=== PATIENT | male | born 1975 | race Caucasian/White ===

== ENCOUNTER → 2019-09-30 | Outpatient (CLI) | payer OTHER | LOC: ULTRA 15:42 | PROVIDERS: ATTEND Nurse Practitioner | DX: M79.601 Pain in right arm (principal); Z86.718 Personal history of other venous thrombosis and embolism ==

== ENCOUNTER → 2020-09-22 | Outpatient (CLI) | payer OTHER | LOC: SJCVC 13:48 → SJCVCIMAG 13:48 → SJCVC 16:57 | PROVIDERS: ATTEND Family Medicine | DX: I08.0 Rheumatic disorders of both mitral and aortic valves (principal); I77.819 Aortic ectasia, unspecified site ==

== ENCOUNTER → 2020-09-23 | Outpatient (CLI) | payer OTHER | LOC: SJCVCIMAG 09-22 16:57 | PROVIDERS: ATTEND Internal Medicine Cardiovascular Disease | DX: I65.23 Occlusion and stenosis of bilateral carotid arteries (principal); N13.30 Unspecified hydronephrosis; R16.2 Hepatomegaly with splenomegaly, not elsewhere classified; I10 Essential (primary) hypertension; R09.89 Other specified symptoms and signs involving the circulatory and respiratory systems; Z79.899 Other long term (current) drug therapy ==

== ENCOUNTER → 2020-09-27 | Outpatient (CLI) | payer OTHER | LOC: CAT 08:41 | PROVIDERS: ATTEND Internal Medicine Cardiovascular Disease | DX: K76.6 Portal hypertension (principal); I81 Portal vein thrombosis; N28.1 Cyst of kidney, acquired; K86.9 Disease of pancreas, unspecified; N13.30 Unspecified hydronephrosis; R16.2 Hepatomegaly with splenomegaly, not elsewhere classified ==

== ENCOUNTER → 2020-10-04 | Outpatient (CLI) | payer OTHER ==
[~2020-10-04] VITALS: Ht 172.7 cm; Wt 97.5 kg
[~2020-10-04] MED LIST: ADDERALL 20 MG20 MG PO; FISH OIL 1,001000 M3 PO; VITAMIN D31250 MC1 PO; XARELTO20 MG PO
[2020-10-04 07:57] VITALS: BP 106/72
[2020-10-04 08:44] LABS: CALCIUM 8.9 mg/dL (8.5-10.1); CREATININE 1.5 mg/dL (0.7-1.3); POTASSIUM 3.9 mmol/L (3.5-5.1)
[2020-10-04 08:51] LABS: TOTAL BILIRUBIN 0.4 mg/dL (0.2-1.0); TOTAL PROTEIN 7.7 g/dL (6.4-8.2)
--- NOTE | 2020-10-04 09:35 | TEE ---
[facility] [place] [address] TRANSESOPHAGEAL ECHOCARDIOGRAM Name: MIRIAM MORRIS Room #: REG DAMIAN Ch.#: [id number] Admission: 10/04/20 Attend Phys: Frank Jordan MD, Discharge: Date of : 75 Report #: [id number] THIS REPORT FOR: cc: Bryce Rubi James A. DO Santiago, Patrick MD FACC ~ APPROVED REPORT Study performed: 10/04/2020 08:35:33 EXAM: Transesophageal Echocardiogram Patient Location: cv holding Status: routine BSA: 2.11 HR: 66 bpm BP: 116/72 mmHg Rhythm: NSR Other Information Study Quality: Good Indications Aortic stenosis. 2D Dimensions Aortic Root: 40.00 mm Procedure After obtaining informed consent, patient underwent transesophageal echo in the Medical Service Representative Holding. Type of Sedation : Conscious Sedation Sedation was administered by Cat Durant RN. Sedation start time: 846 Case end Time: 854 Sedation was achieved intravenously with: Versed (7) Fentanyl (75) Transesophageal probe was inserted and advanced into esophagus without difficulty by Festus Swann MD [facility]. Echo enhancement indication: R/O Septal defect. Echo enhancement agent administered: Agitated Saline The ROSA was performed without complications. Throughout the procedure, the blood pressure, pulse oximetry, cardiac rhythm, and rate were monitored. The patient tolerated the procedure without adverse effects. Recovery from conscious sedation was uneventful and vital signs were [facility] [address] [place] [address] TRANSESOPHAGEAL ECHOCARDIOGRAM Name: MIRIAM MORRIS Room #: [facility].#: [id number] Admission: 10/04/20 Attend Phys: Frank Jordan, Discharge: Date of : 75 Report #: [id number] stable. Left Ventricle The left ventricle is normal size. There is normal LV segmental wall motion. Mild concentric left ventricular hypertrophy. Left ventricular systolic function is normal. LVEF is 55%. Right Ventricle The right ventricle is normal size. The right ventricular systolic function is normal. Atria The left atrium size is normal. The right atrium size is normal. No thrombus is visualized in the left atrium or appendage. No shunting noted with contrast bubble injection. Aortic Valve Aortic valve is likely bicuspid. Leaflets are moderately calcified. Mild aortic regurgitation. Severe aortic stenosis per TTE gradients (Peak 68mmHg, mean 45mmHg). Mitral Valve The mitral valve is normal in structure. Trace to mild mitral regurgitation. Tricuspid Valve The tricuspid valve is normal in structure. Trace tricuspid regurgitation. Pulmonic Valve The pulmonary valve is normal in structure. Great Vessels The sinuses measure 4.0cm. Above measures 3.1. The ascending aorta is normal in size. Pericardium There is no pericardial effusion. <Conclusion> Consent was obtained Timeout was performed After appropriate sedation esophageal probe was advanced without difficulty. Normal left ventricular size/wall thickness Ejection fraction 60% [facility] [address] [place] [address] TRANSESOPHAGEAL ECHOCARDIOGRAM Name: MIRIAM MORRIS Room #: [facility].#: [id number] Admission: 10/04/20 Attend Phys: Frank Jordan, Discharge: Date of : 75 Report #: [id number] Normal right ventricular size/function Left atrial appendage, moderate size no obvious mass or clot detected. Aortic valve mildly calcified/BICUSPID with evidence of severe aortic stenosis. The sinuses measure 4.0 cm Trace aortic valve insufficiency Mean gradient of the aortic valve by previous transthoracic echocardiogram of 45 mmHg Tracemild mitral valve insufficiency Trace tricuspid valve insufficiency Ascending aorta normal size No pericardial effusion No evidence of ASD/VSD by color flow/bubble study Patient tolerated procedure well <ELECTRONICALLY SIGNED> By: Festus Swann MD, FACC 10/04/20934 4 4 Festus Swann MD, FACC /INF
--- NOTE | 2020-10-04 10:39 | EKG ---
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: [facility] : 1975 Requested By: Frank Jordan Order Number: [id number] MD: Festus Swann Measurements Intervals [place] Rate: 67 P: 63 [place]: 157 QRS: 253 QRSD: 109 T: 158 QT: 424 QTc: 448 Interpretive Statements Sinus rhythm Probable left atrial enlargement Abnormal R-wave progression, late transition Consider left ventricular hypertrophy Abnormal T, consider ischemia, lateral leads Baseline wander in lead(s) V3 No previous ECG available for comparison Electronically Signed On 10-04-2020 10:39:05 CDT by Festus Swann [email or web address] <ELECTRONICALLY SIGNED> By: Festus Swann MD, [facility] 10/04/20 1039 [phone] Festus Swann MD, [facility] /EPI
--- NOTE | 2020-10-05 16:51 | CATHLAB ---
[facility] [place] [address] INVASIVE PROCEDURE REPORT Name: MIRIAM MORRIS Room #: JOHN Paulino#: [id number] Admission: 10/04/20 Attend Phys: Frank Jordan MD, Discharge: Date of : 75 Report #: [id number] THIS REPORT FOR: cc: Bryce Rubi James A. DO Mancuso, Gerald M. MD [facility] ~ APPROVED REPORT Study performed: 10/04/2020 08:58:11 Patient Details Patient Status: Out-Patient Room #: The patient is a 44 year-old male Event Personnel Frank Jordan Alignment Technician, Thea Figueroa RTR Monitor, Frank Peterson RTR Scrub,, Cat Juárez RN RN, Nuris Damico RN fancy stitcher Performed Art Access - R femoral artery* Paulo Access - R femoral vein Coronaries Angiography w/Rt Heart Cath [id number] RHCWCOR Supravalvular Aortography Injection [id number] ISVA 78625 Initial Mod Sed Same Phys/QHP Gr5y 958407 99219 Mod Sed Same Phys/QHP Ea 077152 Hemostasis with Manual pressure Hemostasis w/ Mynx Procedure Narrative The Right Groin^ was infiltrated with 1% Lidocaine subcutaneous anesthesia. A PINNACLE 6FR Sheath #[id number] sheath was inserted into the RFA^. Coronary angiography was performed using coronary diagnostic catheters. The right coronary system was accessed and visualized with a JR4 catheter. The left coronary system was accessed and visualized with a JL6 catheter. Closure device was deployed with a Fr MYNXGRIP 6/7F #[id number]. The patient tolerated the procedure well and there were no complications associated with the procedure. There was no hematoma. An aortogram of the aortic arch was performed. Intraoperative Conscious Sedation Sedation start time: 9:32 Case end Time: 10:16 Fentanyl 25 mcg Versed 1 mg Fluoro Time: 6.60 minutes [facility] [place] [address] [place] [address] INVASIVE PROCEDURE REPORT Name: MARLON MORRISREE Room #: [facility]#: [id number] Admission: 10/04/20 Attend Phys: Frank Jordan, Discharge: Date of : 75 Report #: [id number] Dose: DAP 81556.80 cGycm2 1406 mGy Contrast Type and Amount: Visipaque 120 ml Hemodynamics The right atrial mean pressure is 10 mmHg. The right ventricular pressure is 35/5 mmHg. The pulmonary artery pressure is 31/12 mmHg with a mean of 19 mmHg. The mean pulmonary capillary wedge pressure is 14 mmHg. The aortic pressure is 102/60 mmHg with a mean of 80 mmHg. The cardiac output using thermo method is 6.40 L/min. The cardiac index using thermo method is 3.03 L/min/m2. Conclusion #1 Supravalvular aortogram was performed. Moderately severe aortic insufficiency is noted. This is severely stenotic valve not crossed. Aortic root and ascending aortic dilatation is noted. #2 left main large and free of disease giving rise to LAD ramus and dominant circumflex. No occlusive disease. #3 LAD extends around the apex no occlusive disease. #4 moderate size ramus intermedius no occlusive disease. #5 large dominant circumflex artery no occlusive disease. #6 small nondominant right coronary artery no occlusive disease. #7 successful right heart catheterization with hemodynamics noted above. Cardiac output by thermodilution. Recommendations and plan: Patient will need CT surgical consultation regarding aortic valve/aortic root repair or replacement. <ELECTRONICALLY SIGNED> By: Frank Jordan MD, FACC 10/05/201650 50 50 Frank Jordan MD, FACC /INF
== END | disposition home or self-care (01) ==
LOC: CATH 07:21
PROVIDERS: ATTEND Internal Medicine Cardiovascular Disease
DX: I08.3 Combined rheumatic disorders of mitral, aortic and tricuspid valves (principal); R42 Dizziness and giddiness; R55 Syncope and collapse; Z98.890 Other specified postprocedural states; Z79.899 Other long term (current) drug therapy

== ENCOUNTER 2021-03-10 12:21 | Emergency (ER) | payer OTHER ==
[~2021-03-10] VITALS: Ht 172.7 cm; Wt 95.3 kg
[2021-03-10 12:57] LABS: ABSOLUTE NEUTROPHILS 5.5 thou/uL (1.4-8.2); BASOPHILS 0.4 % (0.0-2.0); EOSINOPHILS 0.7 % (0.0-3.0); HEMATOCRIT 53.1 % (42.0-52.0); HEMOGLOBIN 17.4 gm/dL (14.0-18.0); LYMPHOCYTES 8.8 % (24.0-44.0); MCHC 32.7 g/dL (28.0-37.0); MCV 94.9 fL (80.0-100.0); PLATELET COUNT 170 thou/uL (150-400); POLYS 83.1 % (36.0-66.0); RDW 13.2 % (10.5-14.5); WBC 6.6 thou/uL (4.0-11.0)
[2021-03-10 13:10] LABS: CALCIUM 9.2 mg/dL (8.5-10.1); CREATININE 1.3 mg/dL (0.7-1.3); POTASSIUM 3.9 mmol/L (3.5-5.1)
[2021-03-10 13:13] LABS: APTT 34.1 Seconds (24.5-32.8); INR 1.19; PROTIME 12.9 Seconds (10.5-12.1)
[2021-03-10 13:21] LABS: ALBUMIN 4.4 g/dL (3.4-5.0); TOTAL BILIRUBIN 0.3 mg/dL (0.2-1.0); TOTAL PROTEIN 8.1 g/dL (6.4-8.2)
--- NOTE | 2021-03-10 14:03 | EKG ---
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 LVH Compared to ECG 10/04/2020 07:55:24 Electronically Signed On 03-10-2021 14:03:35 ELASTIC ASSEMBLER by Alfredo Talamantes [email or web address] <ELECTRONICALLY SIGNED> By: Alfredo Talamantes MD 03/10/21 1403 1255 1255 MD DEANNA Stevens
[2021-03-10] MEDS ORDERED: TAMSULOSIN HCL0.4 MG PO (14:43)
[2021-03-10] MEDS ORDERED: LEXAPRO 10 MG T10 M2 PO (14:44)
[2021-03-10 18:23] VITALS: BP 150/83
== END 2021-03-10 18:28 ==
LOC: ER 12:21
PROVIDERS: Emergency Medicine; Nurse Practitioner
DX: I35.0 Nonrheumatic aortic (valve) stenosis (principal); Z20.822 Contact with and (suspected) exposure to COVID-19; R77.8 Other specified abnormalities of plasma proteins; R55 Syncope and collapse; F12.90 Cannabis use, unspecified, uncomplicated; Z79.899 Other long term (current) drug therapy; Z79.891 Long term (current) use of opiate analgesic